=== PATIENT | male | born 1970 | race American Indian/Alaskan Native ===

== ENCOUNTER 2018-06-22 07:16 | Emergency (ER) | payer SELFPAY ==
--- NOTE | 2018-06-22 07:23 | Emergency Department Report ---
ED Neuro Deficit HPI - General Stated Complaint: NEURO ISSUES Time Seen by Provider: 06/22/18 07:16 Source: patient, EMS Mode of arrival: Stretcher Limitations: Physical Limitation - History of Present Illness Initial Comments: Patient is a 47-year-old male that presents to emergency room with left-sided weakness. Patient states he woke up this morning this way. Patient states he went to bed last night at 12:00. Last known well time is 12 midnight. She denies chest pain shortness of breath. Patient states he is not able to move his left face or his left arm and leg. Patient complaining of 10 out of 10 headache. Patient states pain is tolerating. Patient denies dizziness. -: Sudden Location: speech, left face, left arm, left leg Presenting Symptoms: Present: Weak/Paralyzed One Side, Facial Droop/Numbness History of same: No Place: home Severity: severe Quality: weak Improves With: none Worsens With: none On Anticoagulants: No Context: sudden onset Associated Symptoms: weakness. denies: confusion, chest pain, cough, diaphoresis, fever/chills, headaches, loss of appetite, malise, nausea/vomiting, vertigo, seizures, shortness of breath, syncope Treatments Prior to Arrival: none - Related Data Allergies/Adverse Reactions: Allergies Allergy/AdvReac Type Severity Reaction Status Date / Time Penicillins Allergy Hives Verified 06/22/18 07:47 ED Review of Systems ROS: Stated complaint: NEURO ISSUES Other details as noted in HPI Constitutional: denies: chills, fever Eyes: denies: eye pain, eye discharge, vision change ENT: denies: ear pain, throat pain Respiratory: denies: cough, shortness of breath, wheezing Cardiovascular: denies: chest pain, palpitations Endocrine: no symptoms reported Gastrointestinal: denies: abdominal pain, nausea, diarrhea Genitourinary: denies: urgency, dysuria Musculoskeletal: denies: back pain, joint swelling, arthralgia Skin: denies: rash, lesions Neurological: weakness. denies: headache, paresthesias Psychiatric: denies: anxiety, depression Hematological/Lymphatic: denies: easy bleeding, easy bruising ED Past Medical Hx - Past Medical History Previous Medical History?: Yes Hx Hypertension: Yes Hx CVA: No Hx Heart Attack/AMI: No Hx Diabetes: Yes ED Neuro Physical Exam - General Limitations: Physical Limitation General appearance: alert, in no apparent distress Suspected Stroke: Yes - Head Head exam: Present: atraumatic, normocephalic - Eye Eye exam: Present: normal appearance, PERRL Pupils: Present: normal accommodation - ENT ENT exam: Present: mucous membranes dry - Neck Neck exam: Present: normal inspection - Respiratory Respiratory exam: Present: normal lung sounds bilaterally. Absent: respiratory distress - Cardiovascular Cardiovascular Exam: Present: regular rate, normal rhythm. Absent: systolic murmur, diastolic murmur, rubs, gallop - GI/Abdominal GI/Abdominal exam: Present: soft, normal bowel sounds - Rectal Rectal exam: Present: deferred - Extremities Exam Extremities exam: Present: normal inspection - Back Exam Back exam: Present: normal inspection - Neurological Exam Neurological exam: Present: alert, oriented X3 - NIHSS Assessment Interval: Baseline 1a. Level of Consciousness: alert/keenly responsive 1b. LOC Questions: answers both correctly 1c. LOC Commands: performs tasks correctly 2. Best Gaze: normal 3. Visual: no visual loss 4. Facial Palsy: partial paralysis 5b. Motor Arm Right: no drift 5a. Motor Arm Left: no movement 6a. Motor Leg Left: no movement 6b. Motor Leg Right: no drift 7. Limb Ataxia: absent 8. Sensory: mild/moderate sensory loss 9. Best Language: no aphasia 10. Dysarthria: severe dysarthria 11. Extinction/Inattention: no abnormality Total Score: 13 Stroke Severity: Moderate Stroke - Psychiatric Psychiatric exam: Present: normal affect, normal mood - Skin Skin exam: Present: warm, dry, intact, normal color. Absent: rash ED Course Vital Signs 06/22/18 06/22/18 06/22/18 07:28 07:30 07:36 Temperature 97.7 F Pulse Rate 53 L 55 L 77 Respiratory 10 L 10 L 12 Rate Blood Pressure 155/101 Blood Pressure [Left] O2 Sat by Pulse 99 99 100 Oximetry 06/22/18 06/22/18 06/22/18 07:45 07:46 07:56 Temperature Pulse Rate 55 L 78 Respiratory 10 L 14 16 Rate Blood Pressure 155/101 Blood Pressure 183/96 [Left] O2 Sat by Pulse 100 100 Oximetry 06/22/18 06/22/18 08:00 08:15 Temperature Pulse Rate 57 L 54 L Respiratory 11 L 11 L Rate Blood Pressure 183/96 150/88 Blood Pressure 157/84 [Left] O2 Sat by Pulse 100 100 Oximetry - Reevaluation(s) Reevaluation #1: Patient evaluated immediately upon arrival by EMS. Patient noted to have left- sided weakness. CODE Stroke initiated. Patient was sent to CT immediately. TELE-neuro consulted. 06/22/18 07:14 Patient has a intracranial hemorrhage. CTA cancel. Blood pressure elevated. Patient will be started on nicardipine drip 06/22/18 07:30 Patient transported via ground EMS to [facility]. 06/22/18 08:30 EMS here to pickler helper patient. Report given to EMS. Blood pressure parameters given EMS. Patient will stay on nicardipine drip. Patient is easily arousable and neuro exam is the same. Patient states headache is improved 06/22/18 08:59 - Consultations Consultation #1: Discussed case with Dr. Serna. Dr. Serna recommends patient to have immedia te CTA of head and neck. patient is outside the window for TPA. 06/22/18 07:21 Consultation #2: Radiologist called back with results of hemorrhagic stroke. CTA cancel. [facility] consulted. 06/22/18 07:35 Stress case with neurosurgery and neuro crystal lapper at [facility]. Patient has been accepted by Dr. Kelley. Neuro crystal lapper request patient given Keppra and keep blood pressure below 150. 06/22/18 08:00 - Lab Data Result diagrams: 06/22/18 07:29 06/22/18 07:29 Lab Results 06/22/18 06/22/18 06/22/18 Range/Units 07:17 07:29 07:29 WBC 5.6 (4.5-11.0) K/mm3 RBC 5.21 H (3.65-5.03) M/mm3 Hgb 13.8 (11.8-15.2) gm/dl Hct 42.0 (35.5-45.6) % MCV 81 L (84-94) fl MCH 27 L (28-32) pg MCHC 33 (32-34) % RDW 14.3 (13.2-15.2) % Plt Count 168 (140-440) K/mm3 Lymph % (Auto) 50.3 H (13.4-35.0) % Hinds % (Auto) 6.2 (0.0-7.3) % Eos % (Auto) 2.3 (0.0-4.3) % Baso % (Auto) 1.1 (0.0-1.8) % Lymph # 2.8 (1.2-5.4) K/mm3 Hinds # 0.3 (0.0-0.8) K/mm3 Eos # 0.1 (0.0-0.4) K/mm3 Baso # 0.1 (0.0-0.1) K/mm3 Seg Neutrophils % 40.1 (40.0-70.0) % Seg Neutrophils # 2.2 (1.8-7.7) K/mm3 PT 13.3 (12.2-14.9) Sec. INR 0.97 (0.87-1.13) APTT 28.1 (24.2-36.6) Sec. Thrombin Time 16.9 (15.1-19.6) Sec. Sodium (137-145) mmol/L Potassium (3.6-5.0) mmol/L Chloride (98-107) mmol/L Carbon Dioxide (22-30) mmol/L Anion Gap mmol/L BUN (9-20) mg/dL Creatinine (0.8-1.5) mg/dL Estimated GFR ml/min BUN/Creatinine Ratio % Glucose (75-100) mg/dL POC Glucose 311 H (70-105) Calcium (8.4-10.2) mg/dL Troponin T (0.00-0.029) ng/mL 06/22/18 Range/Units 07:29 WBC (4.5-11.0) K/mm3 RBC (3.65-5.03) M/mm3 Hgb (11.8-15.2) gm/dl Hct (35.5-45.6) % MCV (84-94) fl MCH (28-32) pg MCHC (32-34) % RDW (13.2-15.2) % Plt Count (140-440) K/mm3 Lymph % (Auto) (13.4-35.0) % Hinds % (Auto) (0.0-7.3) % Eos % (Auto) (0.0-4.3) % Baso % (Auto) (0.0-1.8) % Lymph # (1.2-5.4) K/mm3 Hinds # (0.0-0.8) K/mm3 Eos # (0.0-0.4) K/mm3 Baso # (0.0-0.1) K/mm3 Seg Neutrophils % (40.0-70.0) % Seg Neutrophils # (1.8-7.7) K/mm3 PT (12.2-14.9) Sec. INR (0.87-1.13) APTT (24.2-36.6) Sec. Thrombin Time (15.1-19.6) Sec. Sodium 139 (137-145) mmol/L Potassium 3.6 (3.6-5.0) mmol/L Chloride 98.7 (98-107) mmol/L Carbon Dioxide 28 (22-30) mmol/L Anion Gap 16 mmol/L BUN 12 (9-20) mg/dL Creatinine 1.0 (0.8-1.5) mg/dL Estimated GFR > 60 ml/min BUN/Creatinine Ratio 12 % Glucose 335 H (75-100) mg/dL POC Glucose (70-105) Calcium 8.9 (8.4-10.2) mg/dL Troponin T < 0.010 (0.00-0.029) ng/mL - EKG Data -: EKG Interpreted by [facility] EKG shows normal: sinus rhythm, axis, intervals, QRS complexes, ST-T waves Rate: normal Interpretation: LV[facility] - Radiology Data Radiology results: report reviewed FINAL REPORT EXAM: CT HEAD/BRAIN WO CON HISTORY: neuro deficits lt; 6hrs or sx present upon awakening TECHNIQUE: Routine axial imaging was obtained of the brain without IV contrast. The R no previous studies available for comparison. FINDINGS: There is an acute hemorrhagic stroke in the right temporal lobe measuring 5.5 cm x 2.4 cm. There is approximately 2.5 millimeters of right to left subfalcine shift with mass effect on the right lateral ventricle. The basal cisterns appear normal. The sinuses reveal mild mucosal thickening in both maxillary sinuses. The mastoid air cells are well pneumatized. IMPRESSION: Acute hemorrhagic stroke in the right temporal lobe measuring 5.5 cm x 2.4 cm with approximately 2.5 mm of right to left subfalcine shift. - Medical Decision Making Patient is a 47-year-old male up since emergency room with left-sided weakness. Patient to have intracranial hemorrhage in the temporal lobe. CT was done. Patient transferred to [facility]. Patient accepted by [facility] neuro crystal lapper and neurosurgeon. Labs unremarkable except for hyperlipemia. While in ER patient developed elevated blood pressure was placed on a cardiac apprentice painter neckties. Blood pressure parameters was to keep blood pressure less than 150. Patient was also given Keppra at the request of the crystal lapper to prevent seizure. Patient will be transferred via ground EMS. - Differential Diagnosis CVA. ICH. Critical Care Time: Yes Critical care attestation.: If time is entered above; I have spent that time in minutes in the direct care of this critically ill patient, excluding procedure time. Critical Care Time: 80 minutes ED Disposition Clinical Impression: Malignant hypertension, Hyperglycemia ICH (intracerebral hemorrhage) Qualifiers: Intracerebral hemorrhage etiology: nontraumatic Cerebral hemorrhage location: cerebral hemisphere, unspecified portion Laterality: right Qualified Code(s): I61.2 - Nontraumatic intracerebral hemorrhage in hemisphere, unspecified CVA (cerebral vascular accident) Qualifiers: CVA mechanism: unspecified Qualified Code(s): I63.9 - Cerebral infarction, unspecified Headache Qualifiers: Headache type: unspecified Headache chronicity pattern: acute headache Intractability: intractable Qualified Code(s): R51 - Headache Hypertension Qualifiers: Hypertension type: essential hypertension Qualified Code(s): I10 - Essential (primary) hypertension Disposition: DC/TX-70 ANOTHER TYPE HLTHCARE Is pt being admited?: No Does the pt Need Aspirin: No Condition: Critical Instructions: Hypertension (ED) Time of Disposition: 09:07
--- NOTE | 2018-06-22 07:37 | Cat Scan Report ---
FINAL REPORT EXAM: CT HEAD/BRAIN WO CON HISTORY: neuro deficits <6hrs or sx present upon awakening TECHNIQUE: Routine axial imaging was obtained of the brain without IV contrast. The R no previous st udies available for comparison. FINDINGS: There is an acute hemorrhagic stroke in the right temporal lobe measuring 5.5 cm x 2.4 cm. There is a pproximately 2.5 millimeters of right to left subfalcine shift with mass effect on the right lateral ventricle. The basal cisterns appear normal. The sinuses reveal mild mucosal thickening in both maxil augie sinuses. The mastoid air cells are well pneumatized. IMPRESSION: Acute hemorrhagic stroke in the right temporal lobe measuring 5.5 cm x 2.4 cm with approximately 2.5 mm of right to left subfalcine shift. The findings were discussed with Dr. Cain at 7:34 a.m. on 06/22/2018.
[2018-06-22 07:46] LABS: Hemoglobin 13.8 gm/dl (11.8-15.2); Mean Corpuscular HGB Conc 33 % (32-34); Mean Corpuscular Volume 81 fl (84-94); Platelet Count 168 K/mm3 (140-440); Red Blood Count 5.21 M/mm3 (3.65-5.03); Red Cell Distribution Width 14.3 % (13.2-15.2)
[2018-06-22 07:47] LABS: Basophils # (Auto) 0.1 K/mm3 (0.0-0.1); Basophils % (Auto) 1.1 % (0.0-1.8); Eosinophils # (Auto) 0.1 K/mm3 (0.0-0.4); Eosinophils % (Auto) 2.3 % (0.0-4.3); Lymphocytes # (Auto) 2.8 K/mm3 (1.2-5.4); Lymphocytes % (Auto) 50.3 % (13.4-35.0); Monocytes # (Auto) 0.3 K/mm3 (0.0-0.8); Monocytes % (Auto) 6.2 % (0.0-7.3)
[2018-06-22] MEDS ORDERED: DILAUDID IV ONE (07:49)
[2018-06-22 07:50] LABS: BUN/Creatinine Ratio 12; Blood Urea Nitrogen 12 mg/dL (9-20); Calcium 8.9 mg/dL (8.4-10.2); Hemolysis Index 3
[2018-06-22] MEDS ORDERED: DILAUDID ONE (07:52)
[2018-06-22] MEDS ORDERED: KEPPRA 1,000 MG/NS 0.75% 100ML 1,000 MG/100 ML BAG IV ONE (07:56)
[2018-06-22] MEDS ORDERED: CARDENE 50 MG in NACL 0.9% 250ML 230 ML IV SCH (08:00)
[2018-06-22 08:03] LABS: INR 0.97 (0.87-1.13); Partial Thromboplastin Time 28.1 Sec. (24.2-36.6); Thrombin Time 16.9 Sec. (15.1-19.6)
[2018-06-22 08:24] VITALS: BP 150/88
== END 2018-06-22 08:39 | disposition other institution (70) ==
LOC: ED 07:16
DX: I61.2 Nontraumatic intracerebral hemorrhage in hemisphere, unspecified (principal); I63.9 Cerebral infarction, unspecified; I10 Essential (primary) hypertension; E11.65 Type 2 diabetes mellitus with hyperglycemia; Z88.0 Allergy status to penicillin
CPT/HCPCS: 36415; 70450; 80048; 82962; 84484; 85025; 85610; 85670; 85730; 93005; 93010; 96374; 96375; 99291; 99292; J1170; J1953; J7050